=== PATIENT | female | born 1960 | race Two or more races ===

== ENCOUNTER 2017-04-14 22:14 | Emergency (ER) | payer OTHER ==
[~2017-04-14] VITALS: Ht 160 cm; Wt 65.3 kg
[2017-04-15 00:11] VITALS: BP 130/78
== END 2017-04-15 01:14 | disposition home or self-care (01) ==
LOC: ER 22:23
DX: L03.113 Cellulitis of right upper limb (principal); T80.90XA Unspecified complication following infusion and therapeutic injection, initial encounter; Y92.89 Other specified places as the place of occurrence of the external cause